=== PATIENT | male | born 1975 | race Caucasian/White ===

== ENCOUNTER 2016-12-18 18:17 | Emergency (ER) | payer BC ==
[2016-12-18 20:13] VITALS: BP 133/87
--- NOTE | 2016-12-18 20:24 | UC ---
Back Pain HPI - HPI Summary HPI Summary: The patient comes in today for: 1. Low back pain: Onset: He has had this for 20 years with a worsening over the last 2 weeks. Palliative/provocative: Sitting makes it better as does laying down. Standing and walking makes it worse. Quality: Ache, sharp at times with the back of his right leg will spasm. Region: Lower right back pain with radiation down the right posterior thigh. Severity: 6/10 sitting, standing 9/10 Time: Constant. Associated symptoms: Event: No known injury. Unexplained weight loss: None Cancer hx: None. Fevers/infections: None Bowel/bladder incontinence: None. Treatment: Chiropractor and ASA. He has been taking 2-3 regular strength aspirin about 4-5 times /day. * - History of Current Complaint Chief Complaint: UCBackPain Stated Complaint: BACK PAIN Time Seen by Provider: 12/18/16 20:06 Hx Obtained From: Patient - Allergies/Home Medications Allergies/Adverse Reactions: Allergies Allergy/AdvReac Type Severity Reaction Status Date / Time Eggs or Egg-derived Products Allergy Severe Hives Verified 12/18/16 20:04 Ibuprofen [From Advil] Allergy Severe Hives Verified 12/18/16 20:04 Home Medications: Home Medications Aspirin TAB* [Aspirin 325 MG TAB*] 650 mg PO Q6H PRN 12/18/16 [History Confirmed 12/18/16] Bupropion HCl [Wellbutrin Sr] 150 mg PO DAILY 12/18/16 [History Confirmed ] Dextroamphetamine ER (NF) 30 mg PO DAILY 12/18/16 [History Confirmed 12/18/16] Sertraline* [Zoloft*] 100 mg PO DAILY 12/18/16 [History Confirmed 12/18/16] PMH/Surg Hx/FS Hx/Imm Hx Previously Healthy: No - low back pain, Endocrine History Of: Denies: Diabetes, Thyroid Disease, Hyperthyroidism, Hypothyroidism, Dyslipidemia Cardiovascular History Of: Denies: Cardiac Disorders, Hypertension, Pacemaker/ICD, Myocardial Infarction , Congestive Heart Failure, Atrial Fibrillation, Deep Vein Thrombosis, Bleeding Disorders Respiratory History Of: Denies: COPD, Asthma, Bronchitis, Pneumonia, Pulmonary Embolism GI/ History Of: Denies: Gastroesophageal Reflux, Ulcer, Gastrointestinal Bleed, Gall Bladder Disease, Kidney Stones, Diverticulitis, Renal Disease, Urosepsis Neurological History Of: Denies: TIA, CVA, Dementia, Seizures, Migraine Psychological History Of: Reports: Depression Denies: Anxiety, Bipolar Disorder, Schizophrenia, Post Traumatic Stress Disorder Cancer History Of: Denies: Lung Cancer, Colorectal Cancer, Breast Cancer, Prostate Cancer, Cervical Cancer Other History Of: Negative For: HIV, Hepatitis B, Hepatitis C, Anticoagulant Therapy - Surgical History Surgical History: None - Family History Known Family History: Positive: Cardiac Disease, Hypertension - Social History Occupation: Employed Full-time Alcohol Use: Weekly Substance Use Type: None Smoking Status (MU): Never Smoked Tobacco - Immunization History Most Recent Tetanus Shot: BEFORE 1998 Review of Systems Constitutional: Negative Skin: Negative Eyes: Negative ENT: Negative Respiratory: Negative Cardiovascular: Negative Gastrointestinal: Negative Genitourinary: Negative Musculoskeletal: Arthralgia All Other Systems Reviewed And Are Negative: Yes Physical Exam Triage Information Reviewed: Yes Appearance: Well-Appearing, No Pain Distress, Well-Nourished, Other: - Sitting, he is animated and does not guard his movement. When standing, guards his movement. Vital Signs: Initial Vital Signs Temp 98.9 F 12/18/16 20:08 Pulse 97 12/18/16 20:08 Resp 18 12/18/16 20:08 BP 133/87 12/18/16 20:08 Pulse Ox 99 12/18/16 20:08 Vital Signs Reviewed: Yes Eyes: Positive: Conjunctiva Clear. Negative: Discharge ENT: Positive: Hearing grossly normal. Negative: Pharyngeal erythema, Nasal congestion, Nasal drainage, TM bulging, TM dull, TM red, Tonsillar swelling, Tonsillar exudate Dental: Negative: Gross Decay/Caries @, Dental Fracture @ Neck: Positive: Supple, Nontender, No Lymphadenopathy. Negative: Nuchal Rigidity Respiratory: Positive: Chest non-tender, Lungs clear, No respiratory distress, No accessory muscle use. Negative: Crackles, Stridor Cardiovascular: Positive: RRR, No Murmur Abdomen Description: Positive: Nontender, No Organomegaly, Soft. Negative: Distended, Guarding Musculoskeletal: Positive: Strength Intact, No Edema, Other: - Back: He has no kyphoscoliosis. There is tenderness to palpation along the right paraspinous lumbar musculature. There is sciatic type pain with full extension of this right leg. DTR are 2+/2 x 2 for the patellar and Achilles. He has limited right lateral flexion, and forward flexion. Backward extension is also painful. Neurological: Positive: Alert, Muscle Tone Normal Psychological: Positive: Age Appropriate Behavior, Consolable Skin: Negative: rashes, breakdown Back Pain Course/Dx - Differential Dx/Diagnosis Provider Diagnoses: Low back pain Discharge - Discharge Plan Condition: Stable Disposition: HOME Patient Education Materials: Low Back Strain (ED), Chronic Back Pain (ED) Referrals: Forrest Gillis MD [Primary Care Provider] - 1 Week (Please see your primary care provider in about one to two weeks to see how well you are doing. If you get worse, please be seen sooner.)
== END 2016-12-18 20:55 | disposition home or self-care (01) ==
LOC: UCCORT 18:17
DX: M54.5 Low back pain (principal); F32.9 Major depressive disorder, single episode, unspecified; Z88.6 Allergy status to analgesic agent; Z91.012 Allergy to eggs
CPT/HCPCS: 99202; G0463

== ENCOUNTER 2017-05-18 08:34 | Emergency (ER) | payer BC ==
[2017-05-18 08:39] VITALS: BP 126/98
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
[2017-05-18 09:41] LABS: Hematocrit 38 % (42-52); Hemoglobin 12.7 g/dl (14.0-18.0); Mean Corpuscular HGB Conc 34 g/dl (31-36); Mean Corpuscular Hemoglobin 31 pg (27-31); Mean Corpuscular Volume 91 fL (80-94); Mean Platelet Volume 7 um3 (7.4-10.4); Red Blood Count 4.11 10^6/ul (4.0-5.4); Red Cell Distribution Width 13 % (10.5-15); White Blood Count 8.9 10^3/ul (3.5-10.8)
[2017-05-18 09:44] LABS: Urine Bilirubin Negative (Negative); Urine Glucose Negative (Negative); Urine Nitrite Negative (Negative)
[2017-05-18 09:55] LABS: ALT 15 U/L (7-52); AST 19 U/L (13-39); Albumin 4.1 g/dL (3.2-5.2); Alkaline Phosphatase 81 U/L (34-104); Anion Gap 8 mmol/L (2-11); BUN/Creatinine Ratio 10.3 (8-20); Blood Urea Nitrogen 10 mg/dL (6-24); CO2 Carbon Dioxide 27 mmol/L (22-32); Calcium 8.9 mg/dL (8.6-10.3); Chloride 101 mmol/L (101-111); EGFR African American 108.1 (>60); EGFR Non-African American 84.1 (>60); Glucose 105 mg/dL (70-100); Potassium 3.8 mmol/L (3.5-5.0); Sodium 136 mmol/L (133-145); Total Protein 7.1 g/dL (6.4-8.9)
[2017-05-18 09:58] LABS: Benzodiazepine Urine Screen Presumptive Positive (None Detect)
[2017-05-18 10:13] LABS: Acetaminophen < 15 mcg/mL; Alcohol < 10 mg/dL (<10); Salicylate < 2.50 mg/dL (<30)
[2017-05-18] MEDS ORDERED: HYDROcodone/ACETAMIN 5-325 MG* 1 TAB PO ONE (12:06)
== END 2017-05-18 12:52 | disposition home or self-care (01) ==
LOC: ED 08:34
DX: F32.9 Major depressive disorder, single episode, unspecified (principal); R45.4 Irritability and anger
CPT/HCPCS: 36415; 80053; 80307; 80320; 80329; 81003; 84443; 85025; 99282; G0480